=== PATIENT | male | born 1970 | race Caucasian/White ===

== ENCOUNTER 2017-09-19 18:56 | Emergency (ER) | payer MEDICARE ==
[2017-09-19 19:32] LABS: EOSINOPHILS 1.7 % (0-7); HEMATOCRIT 42.6 % (42.0-54.0); HEMOGLOBIN 14.5 g/dL (13.5-17.5); IMMATURE GRANULOCYTES 0.2 % (0-5); LYMPHOCYTES 42.3 % (15-50); MCH 31.1 pg (26.0-34.0); MCV 91.4 fL (80.0-100.0); MEAN PLATELET VOLUME 10.1 fL (7.4-10.4); MONOCYTES 8.8 % (2-11); PLATELET COUNT 202 10x3/uL (130-400); RBC 4.66 10x6/uL (4.20-6.10); RDW 12.6 % (11.5-14.5); WBC 5.2 10x3/uL (4.8-10.8)
== END 2017-09-19 20:21 | disposition home or self-care (01) ==
LOC: D.ER 18:56
PROVIDERS: Emergency Medicine
DX: K58.9 Irritable bowel syndrome, unspecified (principal)

== ENCOUNTER 2020-09-09 15:38 | Emergency (ER) | payer MEDICARE ==
[~2020-09-09] VITALS: Ht 185.4 cm; Wt 113.6 kg
[2020-09-09 15:46] VITALS: Ht 185.4 cm; Wt 113.6 kg
[2020-09-09 16:18] LABS: BASOPHILS 0.8 % (0-2); EOSINOPHILS 3.1 % (0-7); HEMOGLOBIN 14.1 g/dL (13.5-17.5); IMMATURE GRANULOCYTES 0.5 % (0-5); LYMPHOCYTES 32.5 % (15-50); MCH 31.6 pg (26.0-34.0); MCHC 33.6 g/dL (31.0-37.0); MCV 94.2 fL (80.0-100.0); MEAN PLATELET VOLUME 10.3 fL (7.4-10.4); MONOCYTES 9.4 % (2-11); NEUTROPHIL ABS# 3.47 10x3/uL (1.78-5.38); NEUTROPHILS 53.7 % (40-80); PLATELET COUNT 216 10x3/uL (130-400); RBC 4.46 10x6/uL (4.20-6.10); RDW 13.5 % (11.5-14.5); WBC 6.5 10x3/uL (4.8-10.8)
[2020-09-09 16:20] LABS: BILIRUBIN NEGATIVE (NEGATIVE); KETONE NEGATIVE (NEGATIVE); NITRITE NEGATIVE (NEGATIVE); UROBILINOGEN NORMAL mg/dL (< 2)
[2020-09-09 16:26] LABS: CALC OSMOLALITY 271 mosm/kg (275-300); CALCIUM 8.3 mg/dL (8.5-10.1); CARBON DIOXIDE 29.4 mmol/L (21.0-32.0); CHLORIDE - SERUM 104 mmol/L (98-107); GLUCOSE 87 mg/dL (74-106); POTASSIUM - SERUM 4.1 mmol/L (3.5-5.1); SODIUM 137 mmol/L (136-145); UREA NITROGEN 10 mg/dL (7-18); eGFR NON AFRICAN AMERICAN 84 mL/min (90-120)
[2020-09-09 16:27] LABS: APTT 30.4 SECONDS (22.8-39.4); INR 1.2 (0.85-1.17); PROTIME 14.1 SECONDS (11.6-15.0)
[2020-09-09 16:32] LABS: ALBUMIN 3.5 g/dL (3.4-5.0); ALKALINE PHOSPHATASE 56 U/L (30-120); ALT (SGPT) 19 U/L (10-68); BILIRUBIN - TOTAL 0.38 mg/dL (0.2-1.3); PROTEIN - SERUM 6.8 g/dL (6.4-8.2)
[2020-09-09] MEDS ORDERED: BACLOFEN20 M1 PO (17:16)
[2020-09-09] MEDS ORDERED: VOLTAREN75 MG PO (17:16)
[2020-09-09 17:41] VITALS: BP 123/62
== END 2020-09-09 17:46 | disposition home or self-care (01) ==
LOC: D.ER 15:38
PROVIDERS: Family Medicine
DX: M54.9 Dorsalgia, unspecified (principal); M54.2 Cervicalgia; W19.XXXA Unspecified fall, initial encounter; Y93.9 Activity, unspecified; Y92.9 Unspecified place or not applicable; M79.605 Pain in left leg; R07.89 Other chest pain